=== PATIENT | male | born 1980 | race Two or more races ===

== ENCOUNTER 2017-02-28 14:43 | Emergency (ER) | payer OTHER ==
[2017-02-28 14:57] VITALS: TEMP 98.2
--- NOTE | 2017-02-28 15:54 | EDPHY ---
H & P Stated Complaint: Left arm pain, numbness 02/27/10 - went to ED in [facility]. Same issues today Time Seen by Provider: 02/28/17 15:54 - Personal History Current Tetanus Diphtheria and Acellular Pertussis (TDAP): Yes - Medical/Surgical History Hx Asthma: No Hx Chronic Respiratory Disease: No Hx Diabetes: No Hx Cardiac Disease: No Hx Renal Disease: No Hx Cirrhosis: No Hx Alcoholism: No Hx HIV/AIDS: No Hx Splenectomy or Spleen Trauma: No Other PMH: Denies - Social History Smoking Status: Current some day smoker Constitutional: Initial Vital Signs Temperature (C) 36.8 C 02/28/17 14:52 Heart Rate 91 02/28/17 14:52 Respiratory Rate 16 02/28/17 14:52 Blood Pressure 139/71 H 02/28/17 14:52 O2 Sat (%) 97 02/28/17 14:52 O2 Delivery Mode Room Air Allergies/Adverse Reactions: No Known Allergies Allergy (Unverified 02/28/17 14:57) Home Medications: Medication Instructions Recorded NK [No Known Home Meds] 02/28/17 Medical Decision Making ED Course/Re-evaluation: CHIEF COMPLAINT: Chest pain HISTORY OF PRESENT ILLNESS: The patient is a 36 y/o male arriving with his complaining of waxing and waning chest pain onset yesterday morning. During a [facility] taxi yesterday around 9:00am, 1.5 days ago, he developed chest pain that radiated into his left arm and neck. He had some associated bilateral finger tingling that was worse in his left hand. He denies dyspnea or hyperventilation during this episode. His pain worsened over the next hour so he went to the local ED. There he had what he reports as a normal EKG and chest x-ray. He did drink 4-5 glasses of wine the night prior to symptom onset and he says symptoms do not feel like acid reflux. His pain improved, but then worsened at 6:00am this morning and became even worse during his flight home today. A doctor on his flight administered aspirin and they arranged an ambulance for him upon landing, which he ultimately refused because he felt better by then. He commutes between [facility] and [facility] on a weekly basis. He has a history of hypertriglyceridemia and is an occasional smoker. He denies history of cardiac disease, hypertension, or diabetes. He has never had a stress test, but was able to go on a long bike ride this past weekend without causing any symptoms. REVIEW OF SYSTEMS: A 10 point review of systems was performed and is negative with the exception of the elements mentioned in the history of present illness. PHYSICAL EXAM: HR, BP, O2 Sat, RR. Temp noted General Appearance: Alert, well hydrated, appropriate, and non-toxic appearing. Head: Atraumatic without scalp tenderness or obvious injury Eyes: Pupils equal, round, reactive to light and accommodation, EOMI, no trauma , no injection. Ears: Clear bilaterally, no perforation, normal landmarks Nose: Atraumatic, no rhinorrhea, clear. Throat: There is no erythema or exudates, no lesions, normal tonsils, mucus membranes moist. Neck: Supple, Respiratory: No retractions, no distress, no wheezes, and no accessory muscle use. Lungs are clear to auscultation bilaterally. Cardiovascular: Regular rate and rhythm, no murmurs, rubs, or gallops.Good capillary refill all extremities. Gastrointestinal: Abdomen is soft, nontender, non-distended, no masses, no rebound, no guarding, no peritoneal signs. Musculoskeletal: Normal active ROM of all extremities, atraumatic. Neurological: Alert, appropriate, and interactive. The patient has non-focal cranial nerves, motor, sensory, and cerebellar exam. Skin: No rashes, good turgor, no nodules on palpation. Past medical history: Hypertriglyceridemia Past surgical history: noncontributory Family history: noncontributory Social history: at bedside. Smokes cigarettes occasionally (once every 2 weeks). Drinks 1-2 glasses of wine every other day. Occasional marijuana use. DIAGNOSTICS/PROCEDURES/CRITICAL CARE TIME: The 12 lead EKG was interpreted by myself. Sinus rhythm rate 78. See hard copy and/or "tracemaster" electronic copy for interpretation. DIFFERENTIAL DIAGNOSIS: The differential diagnosis for the patient's chest pain included but was not limited to myocardial ischemia, pulmonary embolus, chest wall pain, pleural inflammation, and pulmonary infectious causes. MEDICAL DECISION MAKING: This is a 36 y/o male who presents for evaluation of 1.5-day history of waxing and waning chest pain. His cardiac risk factors include hypertriglyceridemia and occasional cigarette smoking. Exam is unremarkable. Plan for standard chest pain work up. Patient placed on table worker. IV established and labs drawn. Troponin will be sensitive since pain has been present for over 24 hours. We will not repeat a chest x-ray as he just had a normal x-ray yesterday while the same symptoms were present. Work up is negative. Reassessed patient and discussed results. He will be discharged with referral to applied psychology chair for follow up. Return precautions discussed. He is comfortable with this plan. - Data Points Laboratory Results: Laboratory Results 02/28/17 16:35 02/28/17 16:35 02/28/17 02/28/17 02/28/17 16:35 16:35 16:35 WBC 5.90 10^3/uL 10^3/uL (3.80-9.50) RBC 5.17 10^6/uL 10^6/uL (4.40-6.38) Hgb 15.7 g/dL g/dL (13.7-17.5) Hct 44.0 % % (40.0-51.0) MCV 85.1 fL fL (81.5-99.8) MCH 30.4 pg pg (27.9-34.1) MCHC 35.7 g/dL g/dL (32.4-36.7) RDW 12.3 % % (11.5-15.2) Plt Count 248 10^3/uL 10^3/uL (150-400) MPV 8.8 fL fL (8.7-11.7) Neut % (Auto) 54.4 % % (39.3-74.2) Lymph % (Auto) 29.5 % % (15.0-45.0) [place] % (Auto) 9.2 % % (4.5-13.0) Eos % (Auto) 5.8 % % (0.6-7.6) Baso % (Auto) 0.8 % % (0.3-1.7) Nucleat RBC Rel Count 0.0 % % (0.0-0.2) Absolute Neuts (auto) 3.21 10^3/uL 10^3/uL (1.70-6.50) Absolute Lymphs (auto) 1.74 10^3/uL 10^3/uL (1.00-3.00) Absolute Monos (auto) 0.54 10^3/uL 10^3/uL (0.30-0.80) Absolute Eos (auto) 0.34 10^3/uL 10^3/uL (0.03-0.40) Absolute Basos (auto) 0.05 10^3/uL 10^3/uL (0.02-0.10) Absolute Nucleated RBC 0.00 10^3/uL 10^3/uL (0-0.01) Immature Gran % 0.3 % % (0.0-1.1) Immature Gran # 0.02 10^3/uL 10^3/uL (0.00-0.10) D-Dimer 0.29 ug/mLFEU ug/mLFEU (0.00-0.50) Sodium 144 mEq/L mEq/L (134-144) Potassium 3.9 mEq/L mEq/L (3.5-5.2) Chloride 101 mEq/L mEq/L (97-110) Carbon Dioxide 28 mEq/l mEq/l (22-31) Anion Gap 15 mEq/L mEq/L (8-16) BUN 15 mg/dL mg/dL (7-23) Creatinine 0.9 mg/dL mg/dL (0.7-1.3) Estimated GFR > 60 Glucose 91 mg/dL mg/dL (70-100) Calcium 9.9 mg/dL mg/dL (8.5-10.4) Troponin I < 0.012 ng/mL ng/mL (0.000-0.034) NT-Pro-B Natriuret Pep < 11 pg/mL pg/mL (0-125) Departure - Departure Disposition: Home, Routine, Self-Care Clinical Impression: Chest pain Qualifiers: Chest pain type: other chest pain Qualified Code(s): R07.89 - Other chest pain Condition: Good Instructions: Chest Pain (ED) Additional Instructions: Follow up with applied psychology chair on Friday. Return to the ED for any worsening of condition. Referrals: [facility],PCP [Other] - As per Instructions Asher Bowman MD [Medical Doctor] - As per Instructions Report Scribed for: Sancho Starks Report Scribed by: Tanya Calvillo Date of Report: 02/28/17 Time of Report: 16:22
[2017-02-28 16:43] LABS: % IMMATURE GRANULYOCYTES 0.3 % (0.0-1.1); ABSOLUTE IMMATURE GRANULOCYTES 0.02 10^3/uL (0.00-0.10); ADD DIFF? NO; ADD MORPH? NO; ADD SCAN? NO; ATYPICAL LYMPHOCYTE FLAG 0 (0-99); FRAGMENT RBC FLAG 0 (0-99); HEMOGLOBIN 15.7 g/dL (13.7-17.5); LEFT SHIFT FLG 0 (0-99); LIPEMIA HEMOLYSIS FLAG 90 (0-99); MEAN CELL HEMOGLOBIN 30.4 pg (27.9-34.1); MEAN CELL HEMOGLOBIN CONCENTR. 35.7 g/dL (32.4-36.7); MEAN CELL VOLUME 85.1 fL (81.5-99.8); MEAN PLATELET VOLUME 8.8 fL (8.7-11.7); PLATELET CLUMPS FLAG 10 (0-99); PLATELET COUNT 248 10^3/uL (150-400); RED BLOOD CELL COUNT 5.17 10^6/uL (4.40-6.38); RED CELL DISTRIBUTION WIDTH 12.3 % (11.5-15.2)
--- NOTE | 2017-02-28 16:46 | CPEKG ---
Heart Rate: 78 RR Interval: 769 P-R Interval: 172 QRSD Interval: 92 QT Interval: 364 QTC Interval: 415 P [place]: 54 QRS [place]: 32 T Wave [place]: 44 EKG Severity - NORMAL ECG - EKG Impression: SINUS RHYTHM EKG Impression: Agree with above Electronically Signed By: Josef Rodriguez 07-Mar-2017 11:04:11
[2017-02-28 17:01] LABS: ANION GAP 15 mEq/L (8-16); CALCIUM 9.9 mg/dL (8.5-10.4); CARBON DIOXIDE 28 mEq/l (22-31); CHLORIDE 101 mEq/L (97-110); CREATININE 0.9 mg/dL (0.7-1.3); GLOMERULAR FILTRATION RATE > 60; GLUCOSE 91 mg/dL (70-100); POTASSIUM 3.9 mEq/L (3.5-5.2); SODIUM 144 mEq/L (134-144)
[2017-02-28 17:13] LABS: TROPONIN I < 0.012 ng/mL (0.000-0.034)
[2017-02-28 18:43] VITALS: BP 121/93; PULSE 82; RESP 18; O2SAT 96
== END 2017-02-28 18:43 | disposition home or self-care (01) ==
DX: R07.89 Other chest pain (principal); F17.200 Nicotine dependence, unspecified, uncomplicated